=== PATIENT | female | born 1990 | race Caucasian/White ===

== ENCOUNTER → 2019-12-09 10:21 | Outpatient (CLI) | payer OTHER, SELFPAY ==
[2019-12-09 10:14] VITALS: BMI 27.8
[2019-12-09 11:03] LABS: Absolute Lymphocyte Count 1.86 X10^3/uL (0.83-4.51); Absolute Neutrophil Count 5.7 X10^3/uL (2.0-7.7); Basophil# 0.03 X10^3/uL; Basophil% 0.4 % (0-1); Eosinophil# 0.04 X10^3/uL; Eosinophils% 0.5 % (0-5); Hematocrit 40.1 % (37-47); Hemoglobin 13.6 g/dL (12.0-15.0); Lymphocyte # 1.86 X10^3/ul (4.0); Lymphocyte % 22.8 % (19-41); Mean Corp Hgb Conc 33.9 g/dL (32-36); Mean Corpuscular Hgb 31.7 pg (27.0-32.0); Mean Corpuscular Volume 93.5 fL (81-99); Mean Platelet Vol. 9.3 fl (6.2-12.0); Monocyte# 0.53 X10^3/uL; Monocyte% 6.5 % (0-10); NRBC Flagged by Analyzer 0 % (0-5); Neutrophil # 5.68 X10^3/uL (2.7-7.7); Neutrophil % 69.4 % (47-70); Platelet Count 234 K/mm3 (150-450); RBC Distribution Width CV 12.1 % (11.6-14.6); RBC Distribution Width SD 41.7 fl (35.1-43.9); Red Blood Count 4.29 M/mm3 (4.2-5.4); White Blood Count 8.2 K/mm3 (4.4-11.0)
[2019-12-09 11:39] LABS: Amphetamine Urine VISTA NEGATIVE (<1000 ng/mL); Barbiturate Urine VISTA NEGATIVE (< 200 ng/mL); Benzodiazepine Urine VISTA NEGATIVE (< 200 ng/mL); Cocaine Urine VISTA NEGATIVE (< 300 ng/mL); Ecstacy Urine VISTA NEGATIVE (< 500 ng/mL); Methadone Urine VISTA NEGATIVE (< 300 ng/mL); PCP Urine VISTA NEGATIVE (< 25 ng/mL); THC Urine VISTA NEGATIVE (< 50 ng/mL); Vista UDS pH Range 6
[2019-12-09 12:01] LABS: HIV - WCH Non-Reactive (Nonreactive); Hepatitis B Surface Antigen Non-Reactive (Nonreactive); Hepatitis C Antibody Non-Reactive (Nonreactive); Rubella IgG 198.1 IU/mL
[2019-12-11 04:07] LABS: Chlamydia By Nucleic Acid AMP Negative (Negative)
[2019-12-11 05:34] LABS: Gonococcus By Nucleic Acid AMP Negative (Negative)
[2019-12-12 04:30] LABS: Rapid Plasmin Reagin (RPR) NONREACTIVE (NONREACTIVE)
== END ==
PROVIDERS: PCP Family Medicine; Referring Provider Obstetrics & Gynecology; Visit Provider Obstetrics & Gynecology
DX: Z34.00 Encounter for supervision of normal first pregnancy, unspecified trimester (principal)
CPT/HCPCS: 36415; 80307; 85025; 86592; 86703; 86762; 86803; 86850; 86900; 86901; 87086; 87088; 87340; 87491; 87591

== ENCOUNTER → 2020-05-01 07:28 | Outpatient (CLI) | payer OTHER, SELFPAY ==
[2020-04-03 08:43] VITALS: BMI 30.2
[2020-05-01 07:50] LABS: Absolute Lymphocyte Count 1.47 X10^3/uL (0.83-4.51); Absolute Neutrophil Count 5.7 X10^3/uL (2.0-7.7); Basophil# 0.03 X10^3/uL; Basophil% 0.4 % (0-1); Eosinophil# 0.04 X10^3/uL; Eosinophils% 0.5 % (0-5); Hematocrit 36.2 % (37-47); Hemoglobin 12.5 g/dL (12.0-15.0); Lymphocyte # 1.47 X10^3/ul (4.0); Mean Corp Hgb Conc 34.5 g/dL (32-36); Mean Corpuscular Volume 95.5 fL (81-99); Mean Platelet Vol. 9.2 fl (6.2-12.0); Monocyte# 0.53 X10^3/uL; Monocyte% 6.8 % (0-10); NRBC Flagged by Analyzer 0 % (0-5); Neutrophil # 5.66 X10^3/uL (2.7-7.7); Platelet Count 175 K/mm3 (150-450); RBC Distribution Width CV 12.5 % (11.6-14.6); RBC Distribution Width SD 43.1 fl (35.1-43.9); Red Blood Count 3.79 M/mm3 (4.2-5.4); White Blood Count 7.8 K/mm3 (4.4-11.0)
[2020-05-01 08:00] LABS: Glucose Challenge Gest 1H 50g 80 mg/dL (70-140)
== END ==
PROVIDERS: PCP Family Medicine; Referring Provider Obstetrics & Gynecology; Visit Provider Obstetrics & Gynecology
DX: Z34.90 Encounter for supervision of normal pregnancy, unspecified, unspecified trimester (principal); Z13.1 Encounter for screening for diabetes mellitus
CPT/HCPCS: 36415; 82950; 85025

== ENCOUNTER → 2020-06-22 | Outpatient (CLI) | payer OTHER, SELFPAY ==
[2020-06-22 08:34] VITALS: BMI 34.0
== END | disposition home or self-care (01) ==
LOC: LABSPEC 12:24
PROVIDERS: PCP Family Medicine; Referring Provider Obstetrics & Gynecology; Visit Provider Obstetrics & Gynecology
DX: Z34.00 Encounter for supervision of normal first pregnancy, unspecified trimester (principal)
CPT/HCPCS: 87081

== ENCOUNTER 2020-07-09 00:55 | Inpatient (IN) | payer OTHER, SELFPAY ==
[2020-07-03 08:15] VITALS: BMI 33.5
[2020-07-09] VITALS (76 sets, daily range): BP systolic 102–142; BP diastolic 55–95; PULSE 67–213; RESP 16; TEMP 36.1–37.5; O2SAT 83–99; BMI 32.9
[2020-07-09 00:54] LABS: ROM Internal Control Test YES-OK TO RESULT pt. (Internal QC); ROM Patient Test POSITIVE (Negative)
[2020-07-09 01:29] LABS: Absolute Lymphocyte Count 1.61 X10^3/uL (0.83-4.51); Absolute Neutrophil Count 5.1 X10^3/uL (2.0-7.7); Basophil# 0.01 X10^3/uL; Basophil% 0.1 % (0-1); Eosinophil# 0.03 X10^3/uL; Eosinophils% 0.4 % (0-5); Hematocrit 38.7 % (37-47); Hemoglobin 13.3 g/dL (12.0-15.0); Lymphocyte # 1.61 X10^3/ul (0.83-4.51); Lymphocyte % 22.4 % (19-41); Mean Corp Hgb Conc 34.4 g/dL (32-36); Mean Corpuscular Hgb 32.9 pg (27.0-32.0); Mean Corpuscular Volume 95.8 fL (81-99); Mean Platelet Vol. 9.9 fl (6.2-12.0); Monocyte# 0.45 X10^3/uL; Monocyte% 6.3 % (0-10); NRBC Flagged by Analyzer 0 % (0-5); Neutrophil # 5.06 X10^3/uL (2.7-7.7); Neutrophil % 70.2 % (47-70); Platelet Count 192 K/mm3 (150-450); RBC Distribution Width CV 12.2 % (11.6-14.6); RBC Distribution Width SD 42.5 fl (35.1-43.9); Red Blood Count 4.04 M/mm3 (4.2-5.4); White Blood Count 7.2 K/mm3 (4.4-11.0)
[2020-07-09] MEDS: Acetaminophen 500 MG Tablet PO (05:01)
--- NOTE | 2020-07-09 08:30 | PCM.HPOB.BLA ---
- Problem List (1) Active labor Status: Acute (2) 38 weeks gestation of Status: Acute Comment: COVID ordered on 07/01/20 ([facility] 07/03 2:20pm) (3) Status: Acute Qualifiers: Comment: declined genetic, carrier and NTD. NL anatomy (4) Supervision of normal first , antepartum Status: Acute Comment: PRR FLORINDA 07/15/20 girl (secret) Spouse: Jensen History and Physical Date of Admission: 07/09/20 Intake Vital Signs 07/03/20 BP 128/78 H 07/03/20 Height 5 ft 2 in 07/03/20 Weight: 183 lb 07/03/20 BMI 33.5 07/03/20 BP 140/90 H 05/01/20 BMI 31.3 Intake Visit Reasons: 38WK OB Chief Complaint: est ob Window Installer Required: No Is patient in pain?: No Allergies No Known Allergies Allergy (Verified 07/03/20 08:15) Medications multivitamin no.47-iron fum 27 mg-folate no.1 1 mg-dha 300 mg capsule cap PO 12/09/19 [History Confirmed 07/03/20] amoxicillin 500 mg capsule 500 mg PO Q8H 07/03/20 [History Confirmed 07/03/20] Last Menstral Period: 10/09/19 Zika: Zika virus screening: Negative : No PFSH PFSH Family History Father Colon cancer Diabetes Grandmother Heart disease Social History (Updated 07/03/20 @ 08:[address] Viktoria Hale MD) adopted: No household members: spouse current occupational status: employed current occupation: [employer] pets and animals: Yes sexually active: Yes Smoking Status: Never smoker second hand exposure: No alcohol intake: current details: not while substance use type: does not use seatbelt use: always do you feel safe at home: Yes additional social history: Jensen- student/construction Pregancy History 1 Elective abortions Hx Para Spontaneous abortions Hx # Term Pregnancies Ectopic pregnancies Hx # Pregnancies Multiple births # of living children HPI 38WK OB: Details: KAHLIL BISHOP is a 29 year old at 39 weeks who presents for active labor. OB Visit FLORINDA Calculator Estimated Delivery Date Method Current WG Current Estimate 07/15/20 LMP (Certain) 38w 2d Other Estimates 07/11/20 Ultrasound #1 38w 6d Expected Delivery Route/Plan by 41 weeks Labor Preferences- CB/BF classes: done labor support person: Jensen labor intervention preferences: desires hydrotherapy in labor, limited exams, open to other standard interventions pain management options preferred: desires minimal intervention cut cord/dad catch: cord, maybe delivery - somewhat queasy : yes PP control planned: discussed possible routes of delivery and associated risks: discussed possible delivery modalities and possible indications for each including R/B/A of , VAVD, FAVD, and CS. questions answered. special requests: [] Specific Issue/Plans flu vaccine: declined tdap vaccine: declines rhogam: na LARC form signed: 05/01 movement and labor precautions reviewed. Problem list reviewed and updated with the most current plan of care details and appropriate orders placed. Relevant counseling for the gestational age provided. Continue routine care and follow up unless otherwise noted in visit notes/problem list details Initial Weight: 155 lb Date EGA Weight BP Urine Prot Glucose FHR FuHt Pres Dilation Effaced St Visit Note 01/10/20 13w 2d 154 lb 4 oz (-12 oz) 108/70 Negative Negative 150 Sm- no vb cramping feeling good. 02/03/20 16w 5d 157 lb (+2 lb) Negative Negative 150 SM- no vb cramping 03/02/20 20w 5d 160 lb (+5 lb) 104/62 Negative Negative 145 SM- no vb some cramping and round ligament pain 04/03/20 25w 2d 165 lb (+10 lb) 104/68 Negative Negative 145 SM- no vb lof good fm no regular ctx nl anatomy 05/01/20 29w 2d 171 lb 2 oz (+16 lb 2 oz) 120/78 Negative Negative 150 29 GP - no LOF, VB, DFM, ctx. 28w labs normal. Declines TDAP. LARC form signed. 05/15/20 31w 2d 173 lb (+18 lb) 112/80 Negative Negative 150 31 SM- no vb lof good fm no reuglar ctx 05/29/20 33w 2d 175 lb 6 oz (+20 lb 6 oz) 120/80 Negative Negative 140 33 GP - no LOF, VB, DFM, ctx. Discussed labor preferences and routes of delivery. 06/12/20 35w 2d 182 lb (+27 lb) 122/78 Negative Negative 140 35 SM- no vb lof good fm no reuglar ctx 06/22/20 36w 5d 186 lb (+31 lb) 110/84 Negative Negative 145 36 GP - no LOF, VB, DFM, ctx. Denies complaints. GBS done today. 07/03/20 38w 2d 183 lb (+28 lb) 140/90 128/78 145 37 SM- n ovb lof good fm no regular ctx ACOG First Trimester First Trimester: Desire for , Alcohol, Tobacco Cessation, Illicit/Recreational Drug/Substance Use, Intimate Partner Violence, Barriers to care, Unstable Housing, Communication Barriers, Environmental/Work Hazards, Anticipated Course of Care, Toxoplasmosis Precations, Use of Any medications, Sexual activity, Exercise, Dental Care, Sauna/Hot tub use, Seat Belt use, Childbirth classes/Hospital facilities, , Travel, Indications for US and Screening for Aneuploidy Diagnostics Diagnostics Diagnostics Blood Type A POSITIVE 12/09/19 Antibody Screen NEGATIVE 12/09/19 Glucose 1 Hr 50 gm 80 mg/dL (70-140) 05/01/20 HIV 1&2 Antibody Non-Reactive (Nonreactive) 12/09/19 Rubella IgG Antibody 198.1 IU/mL 12/09/19 Hgb 12.5 g/dL (12.0-15.0) 05/01/20 Hct 36.2 % (37-47) L 05/01/20 RPR NONREACTIVE (NONREACTIVE) 12/09/19 Chlamydia DNA (VALERIANO) Negative (Negative) 12/09/19 N.gonorrhoeae DNA (VALERIANO) Negative (Negative) 12/09/19 Details: HIV: Urine Culture: Sequential Screen: NIPT Screen: ROS Const Reports system reviewed and no additional complaints, except as documented Card Reports system reviewed and no additional complaints, except as documented Resp Reports system reviewed and no additional complaints, except as documented GI Reports system reviewed and no additional complaints, except as documented, Reports nausea Reports system reviewed and no additional complaints, except as documented Musc Reports system reviewed and no additional complaints, except as documented all other systems reviewed and negative Exam Const General: cooperative, healthy appearing, comfortable HENMT Head: normal to inspection Nose: external nose normal Face and sinus: normal facial exam Neck Neck: normal visual inspection, full ROM, no lymphadenopathy Thyroid: thyroid normal Chest Chest palpation & inspection: normal inspection of the chest Resp Effort & Inspection: normal respiratory effort GI Inspection: normal to inspection Palpation: soft, other (gravid uterus) Other: infant vertex and appropriate size for gestational age Other: Cervical Exam: /-3 Extrem General: pedal edema Assessment & Plan Problems 1. Z34.90 declined genetic, carrier and NTD. NL anatomy 2. Supervision of normal first , antepartum Z34.00 PRR FLORINDA 07/15/20 girl (secret) Spouse: Jensen 3. 38 weeks gestation of Z3A.38 COVID ordered on 07/01/20 ([facility] 07/03 2:20pm) Patient presents IAL, plan expectant management for , pitocin if needed. Pain management: desires minimal intervention. GBS negative. Management of any complications: none I have reviewed the [facility] and made any clinically relevant updates. UPDATE- I have seen the patient and performed any clinically relevant updates to the history and physical exam. Estephania Horne MD
[2020-07-09] MEDS: Lactated Ringers 1,000 ML 200 ML IV (10:25)
[2020-07-09] MEDS: Lactated Ringers 500 ML 999 ML IV (12:23)
[2020-07-09] MEDS: fentaNYL-bupivacaine (epidural) 100 ML BAG EPIDURAL (13:00)
[2020-07-09] MEDS: Oxytocin 30 units/NS 500 ml 30 UNITS/500 ML IV.SOLN 334 UNITS IV (17:31)
[2020-07-09] MEDS: Methylergonovine 0.2 MG/ML Ampul IM (17:36)
--- NOTE | 2020-07-09 17:47 | OP.PCM_ITS ---
Problem List (1) Active labor Status: Acute (2) 38 weeks gestation of Status: Acute Comment: COVID ordered on 07/01/20 ([facility] 07/03 2:20pm) (3) Status: Acute Qualifiers: Comment: declined genetic, carrier and NTD. NL anatomy (4) Supervision of normal first , antepartum Status: Acute Comment: PRR FLORINDA 07/15/20 girl (secret) Spouse: Jensen Vaginal Delivery Maternal Presentation: Active Labor 29yo at 39 weeks gestation admitted in active labor. Patient made cervical change to complete dilation without augmentation Amniotic Membrane Rupture Type: Spontaneous at home Amniotic Fluid Description: Clear Final FLORINDA: 07/15/20 Gestational age: 39 Weeks and 1 Days Date of Procedure: 07/09/20 Pre-Operative Diagnosis: Term , active labor Post-Operative Diagnosis: Same Surgery/ Procedure Performed: Spontaneous Vaginal Delivery Type of Anesthesia: Epidural Description of Procedure: Patient began pushing and delivered the head in the MAIK presentation. The head was delivered atraumatically and a loose nuchal cord x2 was noted and easily reduced. The anterior and posterior shoulders delivered without complication followed by the rest of the infant and the infant was placed on the maternal abdomen. Delayed cord clamping was employed for approximately 60 seconds. Cord was clamped and cut and gentle traction was applied to the cord and the placenta delivered spontaneously immediately following it was noted to be intact with three-vessel cord. The perineum and vagina were inspected and a midline first- degree perineal laceration was noted and repaired in the standard fashion using 3-0 Vicryl repeat suture. EBL was 250 cc. Patient and infant tolerated delivery well.
--- NOTE | 2020-07-09 21:29 | DCINST_ITS ---
Discharge Diet: No Restrictions Discharge Activity: Return to Normal Activity, May not drive while taking narcotic pain medications., May Shower May resume sexual activity in: 4-6 weeks Additional Activity Instructions:: Nothing in the vagina for 4-6 weeks. You may return to work/school in 6 weeks. Call your doctor if your incision/area has: Continuous Slow Oozing, Sudden Increased Bleeding, Increased Pain/ Swelling, Increased Redness, Foul Smelling Discharge Additional Instructions: If you experience any of the following, contact your healthcare provider. * Bleeding that soaks a pad every hour for 2 hours * Fever 100.4 or higher * Unrelieved incision or abdominal pain * Swelling, redness, discharge or bleeding from your incision or episiotomy site * Your incision begins to separate * Problems urinating (including inability to urinate or burning while urinating). * Visual changes * Severe headache * Flu-like symptoms * Pain or redness in one of both of your breasts * Pain, warmth, tenderness or swelling in your legs, especially the calf area * Frequent nausea and vomiting * Symptoms of depression or anxiety If you experience any of the following, call 911 or go to the nearest Emergency Room. * Chest pain * Problems breathing * Seizure activity * Partial or complete paralysis of a body part, slurred speech, weakness or drooping of the face, or a sudden inability to walk or hold your balance Allergies/Adverse Reactions: Allergies No Known Allergies Allergy (Verified 07/09/20 00:35) Medications to take at Discharge multivitamin no.47-iron fum 27 mg-folate no.1 1 mg-dha 300 mg capsule cap PO 12/09/19 amoxicillin 500 mg capsule 500 mg PO Q8H 07/03/20 When: Call to make an appointment with your doctor in 6 weeks. If you had elevated Blood Pressure or 4th degree laceration you will need to be seen in 2 weeks. Primary Care Physician: Manjinder Cuellar MD [Primary Care Provider] - Test Results: Test results from this visit will be discussed in further detail at your follow- up appointment, if applicable.
[2020-07-09] MEDS: AMOXICILLIN 500 MG CAPSULE PO (22:24)
[2020-07-10] VITALS (9 sets, daily range): BP systolic 111–131; BP diastolic 57–81; PULSE 82–92; RESP 16–18; TEMP 36.3–37.1
[2020-07-10] MEDS: AMOXICILLIN 500 MG CAPSULE PO ×3 (05:35→21:19)
[2020-07-10] MEDS: Naproxen 250 MG Tablet 500 MG PO (05:38)
--- NOTE | 2020-07-10 09:52 | PN.OBGYN_ITS ---
Patient Problems: Active and Suspected Problems (Last Reviewed 07/03/20 @ 08:20 by Nikole Duran) Active labor (Acute) 38 weeks gestation of (Acute) COVID ordered on 07/01/20 ([facility] 07/03 2:20pm) Supervision of normal first , antepartum (Acute) PRR FLORINDA 07/15/20 girl (secret) Spouse: Jensen (Acute) declined genetic, carrier and NTD. NL anatomy Subjective: Patient doing well without complaints. Tolerating PO. Ambulating and voiding without difficulty. Breast feeding well. Denies chest pain, shortness of breath, calf pain/swelling, fevers, chills, lightheadedness. - Physical Exam Vitals/I&O's: Vital Signs Temp Pulse Resp BP Pulse Ox 98.4 F 90 16 119/71 96 07/10/20 07:54 07/10/20 07:53 07/10/20 07:53 07/10/20 07:53 07/09/20 23:58 Oxygen Delivery Method Room Air Weight: 180 lb Body Mass Index (BMI) 32.9 Intake and Output for Last 24 Hours 07/08/20 07/09/20 07/10/20 23:59 23:59 23:59 Intake Total 2700.00 / 2700.00 Output Total 1999 / 1999 Balance 700.00 / 700.00 General: Alert, Oriented x3, Cooperative, No apparent distress, Well developed, Well nourished HEENT: Atraumatic, PERRLA, EOMI, Normocephalic Neck: Supple, No JVD Lungs: Normal air movement Cardiovascular: Regular rate Abdomen: Soft, Non Tender, Non-Distended, - - fundus firm Extremities: No edema, No Calf Tenderness Neurological: Cranial nerves II-XII grossly intact, Neuro grossly intact Psych/Mental Status: Normal Affect, Appropriate Microbiology Past 72 Hours 07/09/20 01:15 Mucosa - Nose SARS-CoV-2 Antigen (Rapid) - Final Current Medications Acetaminophen (Acetaminophen 500 Mg Tablet) 1,000 mg PO Q8H PRN PRN PRN Reason: Pain Score 1-3 Amoxicillin (Amoxicillin 500 Mg Capsule) 500 mg PO Q8 [facility] Last Admin: 07/10/20 05:35 Dose: 500 mg Documented by: Bisacodyl (Bisacodyl 10 Mg Suppository) 10 mg RC UD PRN PRN Reason: If no BM Dibucaine (Dibucaine 30 Gm Tube) 1 applic TOPICAL TID PRN PRN; Protocol PRN Reason: Discomfort Hydrocortisone (Hydrocortisone 2.5% Crm) 1 applic TOPICAL TID PRN PRN; Protocol PRN Reason: Discomfort Methylergonovine Maleate (Methylergonovine 0.2 Mg/Ml Ampul) 0.2 mg IM X1 PRN PRN Reason: Excess bleeding/uterine atony Last Admin: 07/09/20 17:36 Dose: 0.2 mg Documented by: Naproxen (Naproxen 250 Mg Tablet) 500 mg PO Q8H PRN PRN PRN Reason: Pain Score 1-3 Last Admin: 07/10/20 05:38 Dose: 500 mg Documented by: Ondansetron HCl (Ondansetron 4 Mg/2 Ml Vial) 4 mg IV Q4H PRN PRN PRN Reason: Nausea Oxycodone HCl (Oxycodone 5 Mg Tablet) 5 - 10 mg PO Q4H PRN PRN PRN Reason: Pain Score 4-10 Senna/Docusate Sodium (Senna/Docusate Sodium 1 Tablet) 1 - 2 tablet PO DAILY PRN PRN PRN Reason: Constipation Simethicone (Simethicone 80 Mg Tablet) 80 mg PO PCHS PRN PRN Reason: Indigestion/Stomach pain Sodium Chloride (0.9% Saline Lock 10 Ml Syringe) 5 - 15 ml IV UD PRN PRN Reason: SALINE FLUSH Medical Necessity - Tobacco Use Smoking Status: Former smoker Assessment/Plan All Active Problems (Last Reviewed 07/03/20 @ 08:20 by Nikole Duran) Active labor (Acute) 38 weeks gestation of (Acute) Supervision of normal first , antepartum (Acute) (Acute) negative GBS (Resolved) s/p PPD # 1 1. routine post delivery care 2. breast feeding- support given 3. rh positive 4. rubella immune
[2020-07-10] MEDS: Acetaminophen 500 MG Tablet 1000 MG PO (17:59)
[2020-07-10] MEDS: Senna/Docusate Sodium 1 Tablet PO (21:19)
[2020-07-11 01:46] VITALS: BP 127/75; PULSE 80; TEMP 36
[2020-07-11 01:47] VITALS: BP 127/75; PULSE 80; RESP 16; TEMP 36.6
[2020-07-11] MEDS: AMOXICILLIN 500 MG CAPSULE PO (05:53)
[2020-07-11 08:00] VITALS: BP 113/72; PULSE 85; RESP 18; TEMP 36.7; O2SAT 96
[2020-07-11 08:01] VITALS: BP 113/72; PULSE 85
--- NOTE | 2020-07-11 08:49 | PCM.PN.OB ---
Patient Problems: Active and Suspected Problems (Last Reviewed 07/03/20 @ 08:20 by Nikole Duran) Active labor (Acute) 38 weeks gestation of (Acute) COVID ordered on 07/01/20 ([facility] 07/03 2:20pm) Supervision of normal first , antepartum (Acute) PRR FLORINDA 07/15/20 girl (secret) Spouse: Jensen (Acute) declined genetic, carrier and NTD. NL anatomy Subjective: Patient doing well without complaints. Tolerating PO. Ambulating and voiding without difficulty. Breast feeding well. Denies chest pain, shortness of breath, calf pain/swelling, fevers, chills, lightheadedness. - Physical Exam Vitals/I&O's: Vital Signs Temp Pulse Resp BP Pulse Ox 98.1 F 85 18 113/72 96 07/11/20 08:00 07/11/20 08:01 07/11/20 08:00 07/11/20 08:01 07/11/20 08:00 Oxygen Delivery Method Room Air Weight: 180 lb Body Mass Index (BMI) 32.9 Intake and Output for Last 24 Hours 07/09/20 07/10/20 07/11/20 23:59 23:59 23:59 Intake Total 2700.00 / 2700.00 Output Total 1999 / 1999 Balance 700.00 / 700.00 General: Alert, Oriented x3, Cooperative, No apparent distress, Well developed, Well nourished HEENT: Atraumatic, PERRLA, EOMI, Normocephalic Neck: Supple, No JVD Lungs: Normal air movement Cardiovascular: Regular rate Abdomen: Soft, Non Tender, Non-Distended, - - fundus firm Extremities: No edema, No Calf Tenderness Neurological: Cranial nerves II-XII grossly intact, Neuro grossly intact Psych/Mental Status: Normal Affect, Appropriate Microbiology Past 72 Hours 07/09/20 01:15 Mucosa - Nose SARS-CoV-2 Antigen (Rapid) - Final Current Medications Acetaminophen (Acetaminophen 500 Mg Tablet) 1,000 mg PO Q8H PRN PRN PRN Reason: Pain Score 1-3 Last Admin: 07/10/20 17:59 Dose: 1,000 mg Documented by: Amoxicillin (Amoxicillin 500 Mg Capsule) 500 mg PO Q8 [facility] Last Admin: 07/11/20 05:53 Dose: 500 mg Documented by: Bisacodyl (Bisacodyl 10 Mg Suppository) 10 mg RC UD PRN PRN Reason: If no BM Dibucaine (Dibucaine 30 Gm Tube) 1 applic TOPICAL TID PRN PRN; Protocol PRN Reason: Discomfort Hydrocortisone (Hydrocortisone 2.5% Crm) 1 applic TOPICAL TID PRN PRN; Protocol PRN Reason: Discomfort Methylergonovine Maleate (Methylergonovine 0.2 Mg/Ml Ampul) 0.2 mg IM X1 PRN PRN Reason: Excess bleeding/uterine atony Last Admin: 07/09/20 17:36 Dose: 0.2 mg Documented by: Naproxen (Naproxen 250 Mg Tablet) 500 mg PO Q8H PRN PRN PRN Reason: Pain Score 1-3 Last Admin: 07/10/20 05:38 Dose: 500 mg Documented by: Ondansetron HCl (Ondansetron 4 Mg/2 Ml Vial) 4 mg IV Q4H PRN PRN PRN Reason: Nausea Oxycodone HCl (Oxycodone 5 Mg Tablet) 5 - 10 mg PO Q4H PRN PRN PRN Reason: Pain Score 4-10 Senna/Docusate Sodium (Senna/Docusate Sodium 1 Tablet) 1 - 2 tablet PO DAILY PRN PRN PRN Reason: Constipation Last Admin: 07/10/20 21:19 Dose: 2 tablet Documented by: Simethicone (Simethicone 80 Mg Tablet) 80 mg PO PCHS PRN PRN Reason: Indigestion/Stomach pain Sodium Chloride (0.9% Saline Lock 10 Ml Syringe) 5 - 15 ml IV UD PRN PRN Reason: SALINE FLUSH Medical Necessity - Tobacco Use Smoking Status: Former smoker Assessment/Plan All Active Problems (Last Reviewed 07/03/20 @ 08:20 by Nikole Duran) Active labor (Acute) 38 weeks gestation of (Acute) Supervision of normal first , antepartum (Acute) (Acute) negative GBS (Resolved) s/p PPD # 2 1. routine post delivery care 2. breast feeding- support given 3. rh positive 4. rubella immune
== END 2020-07-11 09:20 | disposition home or self-care (01) | DRG 807 ==
LOC: WPOUT 01:01 → WP 01:01
PROVIDERS: Admitting Provider Obstetrics & Gynecology; PCP Family Medicine; Visit Provider Obstetrics & Gynecology
DX: O42.92 Full-term premature rupture of membranes, unspecified as to length of time between rupture and onset of labor (principal); Z37.0 Single live birth; O69.81X0 Labor and delivery complicated by cord around neck, without compression, not applicable or unspecified; O70.0 First degree perineal laceration during delivery; Z3A.39 39 weeks gestation of pregnancy; Z28.21 Immunization not carried out because of patient refusal; Z87.891 Personal history of nicotine dependence
CPT/HCPCS: 59025; 59050; 84112; 85025; 86850; 86900; 86901; 87426; 99218; J7120; G0378

== ENCOUNTER → 2022-10-25 | Outpatient (CLI) | payer SELFPAY ==
--- NOTE | 2022-10-25 09:43 | US_ITS ---
STUDY: FIRST TRIMESTER OBSTETRICAL ULTRASOUND REASON FOR EXAM: Female, 32 years old . Dating. LMP: August 17, 2022. TECHNIQUE: Transvaginal TECHNICAL QUALITY: Adequate. PRIOR ULTRASOUND: None. FINDINGS: There is visualization of a single gestational sac in a normal intrauterine position. The mean sac diameter (MSD) measures 4.6 cm, indicating an estimated gestational age (EGA) of 10 weeks, 1 days. The gestational sac shape is within normal limits. There is a visualized yolk sac. The yolk sac measures 5 mm. The placenta is non-visualized. There is visualization of a live embryo. The crown-rump length (CRL) measures 3.4 cm, indicating an estimated gestational age (EGA) of 10 weeks, 0 days. There is demonstrated cardiac activity with a heart rate of 172 bpm. The estimated gestation age (EGA) by LMP is 9 weeks, 6 days. The estimated date of delivery (FLORINDA) by LMP is May 24, 2023. The estimated gestation age (EGA) by US is 10 weeks, 1 days. The estimated date of delivery (FLORINDA) by US is May 22, 2023. The uterus measures 11.2 cm x 8.8 cm x 7.2 cm. There is no demonstrated uterine fibroid. The cervix is closed. The right ovary measures 2.5 cm x 2.2 cm x 2.5 cm. There is no right ovarian cyst. There is no visualized right adnexal mass or complex lesion. The left ovary measures 2.4 cm x 1.97 x 1.6 cm. There is no left ovarian cyst. There is no visualized left adnexal mass or complex lesion. There is no fluid in the cul de sac. US/Transvaginal w/Preg US IMPRESSION: Single live intrauterine gestation with a mean gestational age of 10 weeks and 1 day. Electronically Signed: Jeffrey Laurent MD at 15:19 EDT ,
[2022-10-28 12:09] LABS: Chlamydia By Nucleic Acid AMP Negative (Negative); Gonococcus By Nucleic Acid AMP Negative (Negative)
[2022-10-31 13:07] LABS: HPV APTIMA, High Risk Negative (Negative)
== END | disposition home or self-care (01) ==
PROVIDERS: PCP Family Medicine; Referring Provider Obstetrics & Gynecology; Visit Provider Obstetrics & Gynecology
DX: Z34.00 Encounter for supervision of normal first pregnancy, unspecified trimester (principal)
CPT/HCPCS: 76817; 87077; 87086; 87088; 87186; 87491; 87591; 87624; 88175; G0145

== ENCOUNTER → 2022-11-23 | Outpatient (CLI) | payer SELFPAY ==
[2022-11-23 09:18] LABS: Absolute Lymphocyte Count 1.77 X10^3/uL (0.83-4.51); Absolute Neutrophil Count 5.4 X10^3/uL (2.0-7.7); Basophil# 0.02 X10^3/uL; Basophil% 0.3 % (0-1); Eosinophil# 0.03 X10^3/uL; Eosinophils% 0.4 % (0-5); Hematocrit 40.3 % (37-47); Hemoglobin 13.8 g/dL (12.0-15.0); Lymphocyte # 1.77 X10^3/ul (0.83-4.51); Lymphocyte % 23.3 % (19-41); Mean Corp Hgb Conc 34.2 g/dL (32-36); Mean Corpuscular Hgb 32.1 pg (27.0-32.0); Mean Corpuscular Volume 93.7 fL (81-99); Mean Platelet Vol. 9.1 fl (6.2-12.0); Monocyte% 5.3 % (0-10); NRBC Flagged by Analyzer 0 % (0-5); Neutrophil # 5.37 X10^3/uL (2.7-7.7); Neutrophil % 70.4 % (47-70); Platelet Count 193 K/mm3 (150-450); RBC Distribution Width CV 12.4 % (11.6-14.6); RBC Distribution Width SD 42.9 fl (35.1-43.9); White Blood Count 7.6 K/mm3 (4.4-11.0)
[2022-11-23 09:34] LABS: Glucose Challenge Gest 1H 50g 99 mg/dL (70-140)
[2022-11-23 10:17] LABS: HIV - WCH Non-Reactive (Nonreactive); Hepatitis B Surface Antigen Non-Reactive (Nonreactive); Hepatitis C Antibody Non-Reactive (Nonreactive); Rubella IgG Reactive (Nonreactive); Syphilis Antibodies Non-reactive
== END | disposition home or self-care (01) ==
PROVIDERS: PCP Family Medicine; Referring Provider Obstetrics & Gynecology; Visit Provider Obstetrics & Gynecology
DX: Z34.00 Encounter for supervision of normal first pregnancy, unspecified trimester (principal)
CPT/HCPCS: 36415; 82950; 85025; 86703; 86762; 86780; 86803; 86850; 86900; 86901; 87340

== ENCOUNTER → 2023-01-09 | Outpatient (CLI) | payer SELFPAY ==
--- NOTE | 2023-01-09 13:21 | US_ITS ---
STUDY: SECOND AND THIRD TRIMESTER OBSTETRICAL ULTRASOUND REASON FOR EXAM: Female, 32 years old anatomy scan LMP: August 17, 2022. TECHNIQUE: Transabdominal and Transvaginal TECHNICAL QUALITY: Adequate. PRIOR ULTRASOUND: Comparison is made with prior study dated October 25, 2022. FINDINGS: There is a single intrauterine fetus. The fetus is in a cephalic presentation. There is demonstrated cardiac activity with a heart rate of 142 bpm. There is a normal amniotic fluid volume. The largest amniotic fluid pocket measures 3.3 cm x 3.5 cm. The amniotic fluid index (KINDRA) is normal. The placenta is posterior in location and is not low lying. There are Grade 0 placental changes. The cervix measures 5.3 cm in length. The adnexal regions are not visualized. BIOMETRY: BPD: 4.99 cm: 21 weeks, 1 days HC: 19.02 cm: 21 weeks, 2 days AC: 16.43 cm: 21 weeks, 3 days FL: 3.36 cm: 20 weeks, 4 days CI: 76.2% FL/BPD: 67.3% FL/HC: FL/AC: 20.5% HC/AC: 1.16 age by current US: 21 weeks, 0 days. FLORINDA by current US: May 22, 2023. Estimated weight: 400 grams, +/- 60 grams, 65.4 %. age by prior US: 21 weeks, 0 days. FLORINDA by prior US: May 22, 2023. Age by LMP: 20 weeks, 5 days. FLORINDA by LMP: May 24, 2023. ANATOMY: Gender: Male Cranium: Normal lateral ventricles. Normal choroid plexus. Normal cerebellum. Normal cisterna magna. Normal face, nose and lips. Chest: Normal 4-chamber heart. Abdomen/Pelvis: Normal diaphragm. Normal stomach. Normal abdominal wall. Normal cord insertion. Normal 3 vessel cord. The insertion of the umbilical cord is at 2.5 cm from the placental edge. Normal kidneys. Normal bladder. Spine: Normal cervical spine. Normal thoracic spine. Normal lumbar spine. Normal sacrum. Extremities: Normal bilateral upper extremities. Normal bilateral lower extremities. IMPRESSION: Single live intrauterine gestation with a mean gestational age of 21 weeks. Electronically Signed: Jeffrey Laurent MD at 9:46 EDT , STUDY: FIRST TRIMESTER OBSTETRICAL ULTRASOUND REASON FOR EXAM: Female, 32 years old. Cervical length. LMP: August 17, 2022 TECHNIQUE: Transvaginal TECHNICAL QUALITY: Adequate. PRIOR ULTRASOUND: None. FINDINGS: Cervical length measures 5.3 cm. US/OB Anatomy w/ Transvaginal IMPRESSION: Cervical length measures 5.3 cm. Electronically Signed: Jeffrey Laurent MD at 9:47 EDT ,
== END | disposition home or self-care (01) ==
PROVIDERS: PCP Family Medicine; Visit Provider Registered Nurse
DX: Z34.00 Encounter for supervision of normal first pregnancy, unspecified trimester (principal)
CPT/HCPCS: 76805; 76817

== ENCOUNTER → 2023-02-20 | Outpatient (CLI) | payer SELFPAY ==
[2023-02-20 08:45] LABS: Absolute Lymphocyte Count 1.61 X10^3/uL (0.83-4.51); Absolute Neutrophil Count 4.9 X10^3/uL (2.0-7.7); Basophil# 0.02 X10^3/uL; Basophil% 0.3 % (0-1); Eosinophil# 0.06 X10^3/uL; Eosinophils% 0.9 % (0-5); Hematocrit 37.5 % (37-47); Hemoglobin 12.3 g/dL (12.0-15.0); Lymphocyte # 1.61 X10^3/ul (0.83-4.51); Lymphocyte % 23.2 % (19-41); Mean Corp Hgb Conc 32.8 g/dL (32-36); Mean Corpuscular Hgb 31.8 pg (27.0-32.0); Mean Corpuscular Volume 96.9 fL (81-99); Mean Platelet Vol. 8.9 fl (6.2-12.0); Monocyte# 0.32 X10^3/uL; Monocyte% 4.6 % (0-10); NRBC Flagged by Analyzer 0 % (0-5); Neutrophil % 70.4 % (47-70); Platelet Count 207 K/mm3 (150-450); RBC Distribution Width CV 13.2 % (11.6-14.6); RBC Distribution Width SD 46.8 fl (35.1-43.9); Red Blood Count 3.87 M/mm3 (4.2-5.4)
[2023-02-20 08:55] LABS: Glucose Challenge Gest 1H 50g 97 mg/dL (70-140)
[2023-02-20 09:37] LABS: HIV - WCH Non-Reactive (Nonreactive); Syphilis Antibodies Non-reactive
== END | disposition home or self-care (01) ==
PROVIDERS: PCP Family Medicine; Referring Provider Registered Nurse; Visit Provider Registered Nurse
DX: Z34.90 Encounter for supervision of normal pregnancy, unspecified, unspecified trimester (principal)
CPT/HCPCS: 36415; 82950; 85025; 86703; 86780

== ENCOUNTER → 2023-05-01 | Outpatient (CLI) | payer SELFPAY ==
--- OUTSIDE RECORDS SUMMARY | 2023-05-01 20:37 | XMS RPT_ITS | CCD ---
Author Name Unknown Address [id number] [place] [address] Organization [facility] Care Team Providers Care Box Repairer Name Role Phone Sae Escoto Marija Unavailable Unavailable Problems Active Problems Problem Classification Problem Date Documented Da te Episodic/Chronic Unclassified (1 source) Unknown / UNK(Unknown) Onset: 06-10-2017 Past or Other Problems Problem Classification Problem Date Documented Da te Episodic/Chronic Unclassified (1 source) CASTLE,RUNNY NOSE,EAR PAIN,BODY ACHE Onset: 06-10-2017 Results Test Name Value Interpretation Reference Range Facil ity Encounters Encounter Date Encounter Type Care Provider Facility Start: 06-10-2017 Ambulatory Sae Escoto Facility: [facility] Payers Date Payer Category Payer Unknown [id number] Summary Purpose Family History No Family History Records FoundNo Family History Records Found Advance Directives No Advanced Directives Records FoundNo Advanced Directives Records Found Additional Source Comments INFORMATION SOURCE (unrecogn ized section and content) DATE CREATED AUTHOR AUTHOR'S ARSLAN HURT 08/26/2019 [facility] (PR) FOR RECORDS PERTAINING TO PATIENTS WHO ARE OR HAVE BEEN ENROLLED IN A CHEMICAL DEPENDENCY/SUBSTANCEABUSE PROGRAM, SOME INFORMATION MAY BE OMITTED. This clinical summary was aggregated from multiple sources. Caution should be exercised in using it in the provision of clinical care. This summary normalizes information from multiple sources, and as a consequence, information in this document may materially change the coding, format and clinical context of patient data. In addition, data may be omitted in some cases. CLINICAL DECISIONS SHOULD BE BASED ON THE PRIMARY CLINICAL RECORDS. [facility] [employer] [facility]. provides no warranty or guarantee of the accuracy or completeness of information in this document.
== END | disposition home or self-care (01) ==
PROVIDERS: PCP Family Medicine; Visit Provider Advanced Practice Midwife
DX: R82.71 Bacteriuria (principal)
CPT/HCPCS: 87081

== ENCOUNTER 2023-05-27 09:38 | Inpatient (IN) | payer SELFPAY ==
[2023-05-27] VITALS (27 sets, daily range): BP systolic 105–181; BP diastolic 56–89; PULSE 80–134; RESP 16; TEMP 36.3–37.2; O2SAT 95–98; BMI 34.7
--- OUTSIDE RECORDS SUMMARY | 2023-05-27 09:10 | XMS RPT_ITS | CCD ---
Author Name Unknown Address [address] [place] [address] Organization [facility] Care Team Providers Care Opener Name Role Phone Sae Escoto Marija Unavailable [...] Facility Start: 06-10-2017 Ambulatory Sae Escoto Facility: [facility] Payers Date Payer Category Payer Unknown [id number] Summary Purpose Family History No Family History Records FoundNo Family History Records Found Advance Directives No Advanced Directives Records FoundNo Advanced Directives Records Found Additional Source Comments INFORMATION SOURCE (unrecogn ized section and content) DATE CREATED AUTHOR AUTHOR'S ARSLAN HURT 08/26/2019 [facility] ([place]) FOR RECORDS PERTAINING TO PATIENTS WHO ARE [...] BE BASED ON THE PRIMARY CLINICAL RECORDS. [facility] [employer] [facility]. provides no warranty or guarantee of the accuracy or completeness of information in this document.
--- OUTSIDE RECORDS SUMMARY | 2023-05-27 09:40 | XMS RPT_ITS | CCD ---
Author Name Unknown Address [address] [place] [address] Organization [facility] Care Team Providers Care Charging Manipulator Name Role Phone Sae Escoto Marija Unavailable [...] Facility Start: 06-10-2017 Ambulatory Sae Escoto Facility: [facility] Payers Date Payer Category Payer Unknown [id number] Summary Purpose Family History No Family History Records FoundNo Family History Records Found Advance Directives No Advanced Directives Records FoundNo Advanced Directives Records Found Additional Source Comments INFORMATION SOURCE (unrecogn ized section and content) DATE CREATED AUTHOR AUTHOR'S ARSLAN HURT 08/26/2019 [facility] ([place]) FOR RECORDS PERTAINING TO PATIENTS WHO ARE [...] BE BASED ON THE PRIMARY CLINICAL RECORDS. [facility] [employer] [facility]. provides no warranty or guarantee of the accuracy or completeness of information in this document.
[2023-05-27 09:59] LABS: ROM Internal Control Test YES-OK TO RESULT pt. (Internal QC)
[2023-05-27 10:00] LABS: ROM Patient Test POSITIVE (Negative)
--- NOTE | 2023-05-27 10:00 | HP.PCM.OB_ITS ---
HPI - General General Date of Admission: 05/27/23 Date of Service: 05/27/23 HPI Narrative HEIDY BISHOP, is a 32 F who presents at 40.3 with increasing contractions intensity and frequency. GBS positive in urine at NOB, negative on repeat culture at 36 weeks. Denies LOF although did feel like she peed herself yesterday no further leaking since. Maternal Data Information FLORINDA Calculator Estimated Delivery Date Method Current WG Current Estimate 05/24/23 LMP (Certain) 40w 3d PFSH PFSH Medical History 38 weeks gestation of Active labor care and examination Home Medications multivitamin no.47-iron fum 27 mg-folate no.1 1 mg-dha 300 mg capsule (PNV-DHA) cap PO Check with primary doctor 12/09/19 [History Last Taken 07/08/20] magnesium 200 mg tablet 200 mg PO DAILY 11/23/22 [History Last Taken Unknown] Lactobacillus reuteri-Lactobacillus rhamnosus 1 billion cell capsule (Fem Dophilus) cap PO 12/22/22 [History Last Taken Unknown] Allergy/AdvReac Type Severity Reaction Status Date / Time No Known Allergies Allergy Verified 05/22/23 10:33 Family History Father Colon cancer Diabetes Grandmother Heart disease Social History adopted: No household members: spouse and family number of children: 1 current occupational status: employed current occupation: [employer] current occupational exposures/hazards: No pets and animals: Yes pets and animals: dog(s) history of recent travel: Yes out of state: Yes sexually active: Yes Smoking Status: Former smoker second hand exposure: No alcohol intake: current details: not while -rare use substance use type: does not use caffeine: Yes Type: coffee seatbelt use: always do you feel safe at home: Yes 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 Date Name GA/Weeks Outcome Route Bth Weight Infant Gen Labor Lgth Anesthesia Del Locatn Provider FOB 07/09/20 [place] 39 live - full term 6lbs 10oz Female e pidural [facility] GP Delivery Date: 07/09/20 Last Updated by: Heidy Vega midline first-degree laceration Visit Details Expected Delivery Route/Plan Labor Preferences- CB/BF classes: Declines labor support person: Jensen labor intervention preferences: unmedicated but open to epidural pain management options preferred: desires tub cut cord/dad catch: [] : wants PP control planned: [] discussed possible routes of delivery and associated risks: [] 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 Plans Covid status: [] Flu vaccine: [] Tdap vaccine: declines Rhogam: NA LARC form signed: Done Problem list reviewed and updated with the most current plan of care details and appropriate orders placed. Relevant counseling for the gestational age provided. Continue routine care and follow up unless otherwise noted in visit notes/problem list details OB Flowsheet Initial Weight: 174 lb Date -?-?-?-?-?-?-?-?-?-?-?-?- EGA Weight BP Urine Prot -?-?-?-?-?-?-?-?-?-?-?-?- Glucose FHR FuHt Pres Dilation -?-?-?-?-?-?-?-?-?-?-?-?- Effaced St Visit Note 10/25/22 -?-?-?-?-?-?-?-?-?-?-?-?- 9w 6d 174 lb (+0 oz) 127/80 -?-?-?-?-?-?-?-?-?-?-?-?- -?-?-?-?-?-?-?-?-?-?-?-?- JV- will be anders ng her ultrasound at [facility] at 10 today. declines nipt. wants to do the fresh test for her early glucola. 11/23/22 -?-?-?-?-?-?-?-?-?-?-?-?- 14w 0d 174 lb 6 oz (+6 oz) 127/85 Negative -?-?-?-?-?-?-?-?-?-?-?-?- Negative 156 -?-?-?-?-?-?-?-?-?-?-?-?- LC- no vb/crampi ng. discussed and declines afp. passed 1 hour glucose. 12/22/22 -?-?-?-?-?-?-?-?-?-?-?-?- 18w 1d 178 lb 4 oz (+4 lb 4 oz) 122/79 -?-?-?-?-?-?-?-?-?-?-?-?- 160 -?-?-?-?-?-?-?-?-?-?-?-?- LC- no vb/crampi ng. anatomy ordered with [facility]. 01/19/23 -?-?-?-?-?-?-?-?-?-?-?-?- 22w 1d 182 lb 4 oz (+8 lb 4 oz) 107/73 Negative -?-?-?-?-?-?-?-?-?-?-?-?- Negative 145 22 -?-?-?-?-?-?-?-?-?-?-?-?- LC- no vb/ctx/lo f. good fm. no concerns. normal anatomy. will use fresh test for glucose. 02/20/23 -?-?-?-?-?-?-?-?-?-?-?-?- 26w 5d 187 lb (+13 lb) 112/77 Negative -?-?-?-?-?-?-?-?-?-?-?-?- Negative 150 26 -?-?-?-?-?-?-?-?-?-?-?-?- lc- no vb/ctx/lo f. good fm. passed 1 hour glucose. no concerns. 03/09/23 -?-?-?-?-?-?-?-?-?-?-?-?- 29w 1d 186 lb 2 oz (+12 lb 2 oz) 112/73 Trace -?-?-?-?-?-?-?-?-?-?-?-?- Negative 150 29 -?-?-?-?-?-?-?-?-?-?-?-?- LC- no vb/ctx/lo f. good fm. no concerns today. declines tdap/flu. 03/22/23 -?-?-?-?-?-?-?-?-?-?-?-?- 31w 0d 188 lb 2 oz (+14 lb 2 oz) 110/77 Negative -?-?-?-?-?-?-?-?-?-?-?-?- Negative 140 32 -?-?-?-?-?-?-?-?-?-?-?-?- KW-no vb/lof/ctx . good fm. no concerns today. 04/06/23 -?-?-?-?-?-?-?-?-?-?-?-?- 33w 1d 188 lb 4 oz (+14 lb 4 oz) 107/75 Negative -?-?-?-?-?-?-?-?-?-?-?-?- Negative 135 33 -?-?-?-?-?-?-?-?-?-?-?-?- LC- no vb/ctx/lo f. good fm. no concerns. reviewed options, desires low intervention 04/24/23 -?-?-?-?-?-?-?-?-?-?-?-?- 35w 5d 189 lb (+15 lb) 112/77 Negative -?-?-?-?-?-?-?-?-?-?-?-?- Negative 140 35 -?-?-?-?-?-?-?-?-?-?-?-?- KW- no vb/lof/ct x. good fm. no concerns today. discussed rescreening for GBS- Declines 05/01/23 -?-?-?-?-?-?-?-?-?-?-?-?- 36w 5d 187 lb (+13 lb) 108/77 Negative -?-?-?-?-?-?-?-?-?-?-?-?- Negative 145 37 Cephalic 3 -?-?-?-?-?-?-?-?-?-?-?-?- 60 -2 KW- no vb/ lof/regular ctx. good fm. Decided to recheck GBS this visit. Does understand that tx is still recommended. KW- no vb/lof/regular ctx. g ood fm. Decided to recheck GBS this visit. Does understand that tx is still recommended. Labor precautions today 05/08/23 -?-?-?-?-?-?-?-?-?-?-?-?- 37w 5d 188 lb (+14 lb) 105/71 Negative -?-?-?-?-?-?-?-?-?-?-?-?- Negative 145 38 Cephalic -?-?-?-?-?-?-?-?-?-?-?-?- KW- no vb/lof/re g ctx. good fm. KW- no vb/lof/reg ctx. good fm. no concerns today. 05/15/23 -?-?-?-?-?-?-?-?-?-?-?-?- 38w 5d 187 lb (+13 lb) 123/83 Negative -?-?-?-?-?-?-?-?-?-?-?-?- Negative 145 37 4 -?-?-?-?-?-?-?-?-?-?-?-?- 70 -2 kw- no vb/ lof/reg ctx. good fm. 05/22/23 -?-?-?-?-?-?-?-?-?-?-?-?- 39w 5d 188 lb 8 oz (+14 lb 8 oz) 103/74 Trace -?-?-?-?-?-?-?-?-?-?-?-?- Negative 135 38 Cephalic -?-?-?-?-?-?-?-?-?-?-?-?- KW- no vb/lof/re g ctx. good fm. NST FHR Rate Baby A Baseline: 150 Variability:: Moderate Accelerations:: 15 x 15 Decelerations:: None NST Reactive:: Yes FHR Category:: Category I Uterine Activity:: q2-3 minutes to palpation moderate/strong ROS Cardiovascular Cardiovascular: Denies abdominal pain, chest pain, diaphoresis or dyspnea Respiratory/Chest Respiratory/Chest: Denies change in mental status, chest congestion, chest tightness, cough, shortness of breath at rest, shortness of breath with exertion, breast mass, breast pain, breast skin changes, breast swelling, change in breast shape or nipple discharge Genitourinary Genitourinary: Reports change in urinary stream Musculoskeletal Musculoskeletal: Reports none Integumentary Integumentary: Reports none Neurologic Neurologic: Reports none Psychiatric Psychiatric: Reports none Endocrine Endocrinology: Reports none Hematologic/Lymphatic
--- NOTE | 2023-05-27 10:00 | PCM.HP.OB ---
HPI - General General Date of Admission: 05/27/23 Date of Service: 05/27/23 HPI Narrative HEIDY BISHOP, is a 32 F who presents at 40.3 with increasing contractions intensity and frequency. GBS positive in urine at NOB, negative on repeat culture at 36 weeks. Denies LOF although did feel like she peed herself yesterday no further leaking since. Maternal Data Information FLORINDA Calculator Estimated Delivery Date Method Current WG Current Estimate 05/24/23 LMP (Certain) 40w 3d PFSH PFSH Medical History 38 weeks gestation of Active labor care and examination Home Medications multivitamin no.47-iron fum 27 mg-folate no.1 1 mg-dha 300 mg capsule (PNV-DHA) cap PO Check with primary doctor 12/09/19 [History Last Taken 07/08/20] magnesium 200 mg tablet 200 mg PO DAILY 11/23/22 [History Last Taken Unknown] Lactobacillus reuteri-Lactobacillus rhamnosus 1 billion cell capsule (Fem Dophilus) cap PO 12/22/22 [History Last Taken Unknown] Allergy/AdvReac Type Severity Reaction Status Date / Time No Known Allergies Allergy Verified 05/22/23 10:33 Family History Father Colon cancer Diabetes Grandmother Heart disease Social History adopted: No household members: spouse and family number of children: 1 current occupational status: employed current occupation: [employer] current occupational exposures/hazards: No pets and animals: Yes pets and animals: dog(s) history of recent travel: Yes out of state: Yes sexually active: Yes Smoking Status: Former smoker second hand exposure: No alcohol intake: current details: not while -rare use substance use type: does not use caffeine: Yes Type: coffee seatbelt use: always do you feel safe at home: Yes 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 Date Name GA/Weeks Outcome Route Bth Weight Infant Gen Labor Lgth Anesthesia Del Locatn Provider FOB 07/09/20 [place] 39 live - full term 6lbs 10oz Female epidural [facility] GP Delivery Date: 07/09/20 Last Updated by: Heidy Vega midline first-degree laceration Visit Details Expected Delivery Route/Plan Labor Preferences- CB/BF classes: Declines labor support person: Jensen labor intervention preferences: unmedicated but open to epidural pain management options preferred: desires tub cut cord/dad catch: [] : wants PP control planned: [] discussed possible routes of delivery and associated risks: [] 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 Plans Covid status: [] Flu vaccine: [] Tdap vaccine: declines Rhogam: NA LARC form signed: Done Problem list reviewed and updated with the most current plan of care details and appropriate orders placed. Relevant counseling for the gestational age provided. Continue routine care and follow up unless otherwise noted in visit notes/problem list details OB Flowsheet Initial Weight: 174 lb Date <del>?</del> EGA Weight BP Urine Prot <del>?</del> Glucose FHR FuHt Pres Dilation <del>?</del> Effaced St Visit Note 10/25/22 <del>?</del> 9w 6d 174 lb (+0 oz) 127/80 <del>?</del> <del>?</del> JV- will be having her ultrasound at [facility] at 10 today. declines nipt. wants to do the fresh test for her early glucola. 11/23/22 <del>?</del> 14w 0d 174 lb 6 oz (+6 oz) 127/85 Negative <del>?</del> Negative 156 <del>?</del> LC- no vb/cramping. discussed and declines afp. passed 1 hour glucose. 12/22/22 <del>?</del> 18w 1d 178 lb 4 oz (+4 lb 4 oz) 122/79 <del>?</del> 160 <del>?</del> LC- no vb/cramping. anatomy ordered with [facility]. 01/19/23 <del>?</del> 22w 1d 182 lb 4 oz (+8 lb 4 oz) 107/73 Negative <del>?</del> Negative 145 22 <del>?</del> LC- no vb/ctx/lof. good fm. no concerns. normal anatomy. will use fresh test for glucose. 02/20/23 <del>?</del> 26w 5d 187 lb (+13 lb) 112/77 Negative <del>?</del> Negative 150 26 <del>?</del> lc- no vb/ctx/lof. good fm. passed 1 hour glucose. no concerns. 03/09/23 <del>?</del> 29w 1d 186 lb 2 oz (+12 lb 2 oz) 112/73 Trace <del>?</del> Negative 150 29 <del>?</del> LC- no vb/ctx/lof. good fm. no concerns today. declines tdap/flu. 03/22/23 <del>?</del> 31w 0d 188 lb 2 oz (+14 lb 2 oz) 110/77 Negative <del>?</del> Negative 140 32 <del>?</del> KW-no vb/lof/ctx. good fm. no concerns today. 04/06/23 <del>?</del> 33w 1d 188 lb 4 oz (+14 lb 4 oz) 107/75 Negative <del>?</del> Negative 135 33 <del>?</del> LC- no vb/ctx/lof. good fm. no concerns. reviewed options, desires low intervention 04/24/23 <del>?</del> 35w 5d 189 lb (+15 lb) 112/77 Negative <del>?</del> Negative 140 35 <del>?</del> KW- no vb/lof/ctx. good fm. no concerns today. discussed rescreening for GBS- Declines 05/01/23 <del>?</del> 36w 5d 187 lb (+13 lb) 108/77 Negative <del>?</del> Negative 145 37 Cephalic 3 <del>?</del> 60 -2 KW- no vb/lof/regular ctx. good fm. Decided to recheck GBS this visit. Does understand that tx is still recommended. KW- no vb/lof/regular ctx. good fm. Decided to recheck GBS this visit. Does understand that tx is still recommended. Labor precautions today 05/08/23 <del>?</del> 37w 5d 188 lb (+14 lb) 105/71 Negative <del>?</del> Negative 145 38 Cephalic <del>?</del> KW- no vb/lof/reg ctx. good fm. KW- no vb/lof/reg ctx. good fm. no concerns today. 05/15/23 <del>?</del> 38w 5d 187 lb (+13 lb) 123/83 Negative <del>?</del> Negative 145 37 4 <del>?</del> 70 -2 kw- no vb/lof/reg ctx. good fm. 05/22/23 <del>?</del> 39w 5d 188 lb 8 oz (+14 lb 8 oz) 103/74 Trace <del>?</del> Negative 135 38 Cephalic <del>?</del> KW- no vb/lof/reg ctx. good fm. NST FHR Rate Baby A Baseline: 150 Variability:: Moderate Accelerations:: 15 x 15 Decelerations:: None NST Reactive:: Yes FHR Category:: Category I Uterine Activity:: q2-3 minutes to palpation moderate/strong ROS Cardiovascular Cardiovascular: Denies abdominal pain, chest pain, diaphoresis or dyspnea Respiratory/Chest Respiratory/Chest: Denies change in mental status, chest congestion, chest tightness, cough, shortness of breath at rest, shortness of breath with exertion, breast mass, breast pain, breast skin changes, breast swelling, change in breast shape or nipple discharge Genitourinary Genitourinary: Reports change in urinary stream Musculoskeletal Musculoskeletal: Reports none Integumentary Integumentary: Reports none Neurologic Neurologic: Reports none Psychiatric Psychiatric: Reports none Endocrine Endocrinology: Reports none Hematologic/Lymphatic Hematologic/Lymphatic: Reports none Allergic/Immunologic Allergic/Immunologic: Reports none Vital Signs Vital Signs Vital Signs: 05/27/23 09:41 05/27/23 09:41 Pulse Rate 94 Blood Pressure 122/85 H BP Systolic 122 BP Diastolic 85 Physical Exam Const alert, oriented x3 and no apparent distress General Appearance: cooperative, comfortable and well kempt Orientation / Consciousness: awake and oriented to person Exam Limitations: no limitations HEENT normocephalic Neck full ROM Chest inspection of chest normal Resp normal respiratory effort, normal air movement and no retractions Effort and Inspection: able to speak in complete sentences and symmetric chest movement Cardio regular rate Peripheral Pulses: pulses 2+ throughout GI normal to inspection, nondistended, normoactive bowel sounds Inspection: gravid no CVA tenderness and appearance of the vagina normal External Female Exam: normal appearance of the urethra; Negative for external lesion OB / External & Speculum: external exam normal Manual OB Exam: estimated gestational size appropriate and presentation cephalic Uterus Palpation: Negative for uterus tender Extremity normal to inspection Skin no rashes or lesions noted Neuro deep tendon reflexes 2+ bilaterally and gait normal Motor Exam: strength 5/5 throughout and clonus absent Psych Activity / Motor Behavior: appropriate eye contact Speech: normal speech Labs Labs Labs: Blood Type A POSITIVE Antibody Screen NEGATIVE Hct 37.5 % (37-47) Hgb 12.3 g/dL (12.0-15.0) Obstetrics Ultrasound Syphilis Total Ab Non-reactive Rubella IgG Antibody Reactive (Nonreactive) Hep Bs Antigen Non-Reactive (Nonreactive) Hepatitis C Antibody Non-Reactive (Nonreactive) Chlamydia DNA (VALERIANO) Negative (Negative) N.gonorrhoeae DNA (VALERIANO) Negative (Negative) HIV 1&2 Antibody Non-Reactive (Nonreactive) Glucose 1 Hr 50 gm 97 mg/dL (70-140) Rhogam given: No Assessment & Plan (1) Supervision of high-risk : QUALIFIERS: Trimester: third trimester Qualified Code(s): O09.93 - Supervision of high risk , unspecified, third trimester COMMENT: PRR, FLORINDA 05/24/23 PC [place] Spouse: Jensen normal glucola (2) GBS bacteriuria: COMMENT: pcn in labor. desires retesting at 36 weeks. will be using probiotics/vitamin c. aware still requires treatment in labor. PLAN: discussed risk, benefits, alternative of GBS treatment. understands recommend treatment with hx of GBS positive in urine. if prolonged ROM, fever or increase in FHR pt will accept PCN. understands is not eligible for early discharge if not adequately treated. (3) Obesity affecting : QUALIFIERS: Trimester: third trimester Obesity type affecting : other obesity due to excess calories Qualified Code(s): O99.213 - Obesity complicating , third trimester; E66.09 - Other obesity due to excess calories COMMENT: early glucola ordered, passed. (4) Supervision of normal first , antepartum: COMMENT: FLORINDA 05/24/23 PC [place] Spouse: Jensen normal glucola (5) : QUALIFIERS: Weeks of gestation: 39 weeks Qualified Code(s): Z3A.39 - 39 weeks gestation of COMMENT: declined genetic, carrier. normal anatomy (6) Spontaneous onset of labor: COMMENT: /-1. admit to . PLAN: Plan Patient presents IAL, plan expectant management for , pitocin/AROM PRN if needed. Pain management: plans unmedicated. GBS positive. pt declines GBS treatment at this time. Management of any complications: obesity I have reviewed the [facility] and made any clinically relevant updates. Dr. Anne updated on admission, exam and POC. primary midwifery care, available as needed for consultations. discussed decline of GBS treatment. pedi aware.
[2023-05-27 10:21] LABS: Absolute Lymphocyte Count 1.71 X10^3/uL (0.83-4.51); Absolute Neutrophil Count 7.6 X10^3/uL (2.0-7.7); Basophil# 0.01 X10^3/uL; Basophil% 0.1 % (0-1); Eosinophil# 0.04 X10^3/uL; Eosinophils% 0.4 % (0-5); Lymphocyte # 1.71 X10^3/ul (0.83-4.51); Lymphocyte % 16.7 % (19-41); Mean Corp Hgb Conc 34.1 g/dL (32-36); Mean Corpuscular Hgb 32.9 pg (27.0-32.0); Mean Corpuscular Volume 96.2 fL (81-99); Mean Platelet Vol. 9.6 fl (6.2-12.0); Monocyte% 7.8 % (0-10); NRBC Flagged by Analyzer 0 % (0-5); Neutrophil # 7.62 X10^3/uL (2.7-7.7); Neutrophil % 74.5 % (47-70); Platelet Count 182 K/mm3 (150-450); RBC Distribution Width CV 13.4 % (11.6-14.6); RBC Distribution Width SD 47.4 fl (35.1-43.9); Red Blood Count 4.26 M/mm3 (4.2-5.4); White Blood Count 10.2 K/mm3 (4.4-11.0)
--- NOTE | 2023-05-27 10:23 | PCM.PN.OB ---
Subjective Subjective increasing discomfort with contractions, on birthing ball Objective Data Objective Data ROM plus positive. Vital Signs: Vital Signs Pulse BP 94 122/85 H 05/27/23 09:41 05/27/23 09:41 Weight: 190 lb Body Mass Index (BMI) 34.7 Lab / Micro Data 05/27/23 10:00 Labs: Laboratory Results - last 24 hr 05/27/23 09:30: Vag Amniotic Fld Detect POSITIVE H 05/27/23 10:00: WBC 10.2, RBC 4.26, Hgb 14.0, Hct 41.0, MCV 96.2, MCH 32.9 H, MCHC 34.1, RDW Std Deviation 47.4 H, RDW Coeff of Lani 13.4, Plt Count 182, MPV 9.6, Immature Gran % (Auto) 0.500, Neut % (Auto) 74.5 H, Lymph % (Auto) 16.7 L, [place] % (Auto) 7.8, Eos % (Auto) 0.4, Baso % (Auto) 0.1, Absolute Neuts (auto) 7.6, Absolute Lymphs (auto) 1.71, Nucleated RBC % 0 Assessment & Plan (1) SROM (spontaneous rupture of membranes): COMMENT: around 4pm 05/26/2023. consents to GBS treatment PLAN: recheck cervical exam around 2pm, if no change in exam plan to augment with pitocin. PLAN: Plan updated on ROM and plan to augment if needed with pitocin if no cervical change in 2-4 hours. pt accepts GBS treatment.
[2023-05-27] MEDS: Lactated Ringers 1,000 ML 50 ML IV (10:50)
[2023-05-27] MEDS: Penicillin G Pot 5,000,000 UNITS in 0.9% Normal Saline (100mL MB+) 100 ML 150 UNITS IV (10:54)
[2023-05-27 11:17] LABS: Syphilis Antibodies Non-reactive
--- NOTE | 2023-05-27 14:50 | PCM.PN.OB ---
Subjective Subjective breathing through contractions, more painful Objective Data Objective Data Vital Signs: Vital Signs Temp Pulse BP Pulse Ox 98.0 F 84 110/56 L 95 05/27/23 14:15 05/27/23 14:16 05/27/23 14:16 05/27/23 14:15 Weight: 190 lb Body Mass Index (BMI) 34.7 Intake & Output: Intake and Output for Last 24 Hours 05/25/23 05/26/23 05/27/23 23:59 23:59 23:59 Intake Total 202.5 / 202.5 Balance 202.5 / 202.5 Lab / Micro Data 05/27/23 10:00 Labs: Laboratory Results - last 24 hr 05/27/23 09:30: Vag Amniotic Fld Detect POSITIVE H 05/27/23 10:00: WBC 10.2, RBC 4.26, Hgb 14.0, Hct 41.0, MCV 96.2, MCH 32.9 H, MCHC 34.1, RDW Std Deviation 47.4 H, RDW Coeff of Lani 13.4, Plt Count 182, MPV 9.6, Immature Gran % (Auto) 0.500, Neut % (Auto) 74.5 H, Lymph % (Auto) 16.7 L, [place] % (Auto) 7.8, Eos % (Auto) 0.4, Baso % (Auto) 0.1, Absolute Neuts (auto) 7.6, Absolute Lymphs (auto) 1.71, Nucleated RBC % 0, Syphilis Total Ab Non-reactive, Blood Type A POSITIVE, Antibody Screen NEGATIVE Physical Exam Const alert and no apparent distress Lymph Lymphatic: no lymphadenopathy noted Manual OB Exam: presentation cephalic, dilated 8, effaced 100 and station 0 Assessment & Plan (1) SROM (spontaneous rupture of membranes): COMMENT: around 4pm 05/26/2023. consents to GBS treatment (2) Spontaneous onset of labor: COMMENT: /-1. admit to [facility]. PLAN: Plan at 40.3 active labor. current tracing: FHT: baseline 145, IA with accels [place]: [email or web address] strong Contractions reviewed tracing abnormalities since last note: none A/P: anticipate continue IA AROM after adequate PCN treatment
[2023-05-27] MEDS: Penicillin G 3,000,000 Units 50 ML 100 UNITS IV (15:05)
[2023-05-27] MEDS: Oxytocin 15 Units/NS 250ml 15 UNITS/250 ML IV.SOLN 83 UNITS IV (16:03)
[2023-05-27] MEDS: Oxytocin 10 UNITS/ML Vial IM (16:03)
[2023-05-27] MEDS: Lidocaine 1% (20 ml mdv) 20 ML Vial INFILT (16:10)
--- NOTE | 2023-05-27 16:27 | OP.PCM_ITS ---
Assessment & Plan (1) (spontaneous vaginal delivery): Maternal Data Information FLORINDA Calculator Estimated Delivery Date Method Current WG Current Estimate 05/24/23 LMP (Certain) 40w 3d
--- NOTE | 2023-05-27 16:27 | EX.PCM.OBRPT ---
Assessment & Plan (1) (spontaneous vaginal delivery): COMMENT: ARIANE IAL 40.3 boy: Vincenzo Maternal Data Information FLORINDA Calculator Estimated Delivery Date Method Current WG Current Estimate 05/24/23 LMP (Certain) 40w 3d Final FLORINDA Source: LMP Gestational age: 40.3 Vaginal Delivery Maternal Presentation Maternal Presentation: Active Labor Maternal Presentation: presenting in active labor at 40.3 ROM plus positive without evidence of ROM, likely high leak. PCN provided with adequate coverage for GBS positive status. progressed without intervention to 9cm, desired AROM for clear fluid and urge to push soon after. Operative Information Date of Procedure: 05/27/23 Pre-Operative Diagnosis: see problem list Post-Operative Diagnosis: Surgery / Procedure Performed: Spontaneous Vaginal Delivery Type of Anesthesia: Local with 1% Lidocaine Estimated Blood Loss: 250 Time of Delivery: 15:55 Findings Description of Procedure: Patient began pushing and delivered the head in the MAIK presentation. The head was delivered atraumatically. The anterior and posterior shoulders delivered without complication followed by the rest of the and the was placed on the maternal abdomen. Delayed cord clamping was employed for approximately 60 seconds. Cord was clamped and cut and gentle traction was applied to the cord and the placenta delivered spontaneously immediately following it was noted to be intact with three-vessel cord. The perineum and vagina were inspected and noted to have 1st degree laceration, repaired with 3-0 vicyrl. EBL was 250cc. Patient and infant tolerated delivery well, entered recovery bonding skin to skin. Dr. Anne updated in uncomplicated delivery. Presentation: Vertex Amniotic Membrane Rupture Type: Spontaneous Time of Membrane Rupture: 1600 with forebag rupture Amniotic Fluid Description: Clear Placental Delivery Description: Spontaneous Placenta Disposition: [facility] Cord Vessel Description: 3 Vessels Cord Entanglement: None Infant A Gender: Male (1 minute): 8 (5 minute): 9 Delayed Cord Clamping: Yes Post Vaginal Delivery Medications Given After Delivery: IV Pitocin and IM Pitocin Procedures Urinary/Genital [id number]: [id number] Vaginal Delivery [facility]
--- NOTE | 2023-05-27 16:38 | DCINST_ITS ---
Discharge Instructions Diet Discharge Diet: No restrictions Activity Discharge Activity: May Not Drive and May Shower May resume sexual activity in: 6 weeks Weight Bearing Status: Full weight bearing Dressing / Incision Call your doctor if your incision/area has: Sudden Increased Bleeding, Increased Pain/ Swelling and Foul Smelling Discharge Call your doctor if you observe: Fever of 101 or Higher, Numbness or Tingling, Change in Color, Inability to urinate, Inability to have a bowel movement, Using more than 1 pad per hour, Shortness of breath, Dizziness, Fainting spells, Chest pain, Calf discomfort and Uncontrolled pain Follow Up Care Please Follow Up With: Izabella Kirby CNM When: 6 weeks , please call office to make an appointment. Congratulations on the of your baby! Test Results: Test results from this visit will be discussed in further detail at your follow- up appointment, if applicable. Discharge Plan Admission Admit Date/Time: 05/27/23 09:38 Attending Provider: Izabella Kirby Primary Care Provider: Manjinder Cuellar Discharge Orders/Prescriptions Prescriptions: No Action PNV-DHA 27 mg iron-1 mg -300 mg capsule PO DAILY magnesium 200 mg tablet 200 mg PO DAILY Fem Dophilus 1 billion cell capsule 1 cap PO DAILY Referrals / Follow Up: Manjinder Cuellar MD [Primary Care Provider] - Disposition Disposition (needs filled in before D/C Order can be placed): Home, Self Care
[2023-05-27] MEDS: Acetaminophen 500 MG Tablet 1000 MG PO (18:13)
[2023-05-28] VITALS (7 sets, daily range): BP systolic 109–125; BP diastolic 68–75; PULSE 83–103; RESP 16–18; TEMP 36.7–36.9; O2SAT 98–99
[2023-05-28] MEDS: Acetaminophen 500 MG Tablet 1000 MG PO (00:31)
[2023-05-28] MEDS: Naproxen 500 MG Tablet PO (08:55)
[2023-05-28] MEDS: Senna/Docusate Sodium 1 Tablet PO (08:56)
--- NOTE | 2023-05-28 09:58 | PN.OBGYN_ITS ---
Subjective Subjective Patient doing well without complaints. Tolerating PO. Ambulating and voiding without difficulty. Feeding well. Denies chest pain, shortness of breath, calf pain/swelling, fevers, chills, lightheadedness. Objective Data Objective Data Vital Signs: Vital Signs Temp Pulse Resp BP Pulse Ox O2 Del Method 98.0 F 103 H 18 109/68 98 Room Air 05/28/23 09:01 05/28/23 09:01 05/28/23 09:01 05/28/23 09:01 05/28/23 09:01 05/28/23 09:01 Oxygen Delivery Method Room Air Weight: 190 lb Body Mass Index (BMI) 34.7 Intake & Output: Intake and Output for Last 24 Hours 05/26/23 05/27/23 05/28/23 23:59 23:59 23:59 Intake Total 502.5 / 502.5 Output Total 950 / 950 Balance -447.5 / -447.5 Lab / Micro Data 05/27/23 10:00 Labs: Laboratory Results - last 24 hr 05/27/23 09:30: Vag Amniotic Fld Detect POSITIVE H 05/27/23 10:00: WBC 10.2, RBC 4.26, Hgb 14.0, Hct 41.0, MCV 96.2, MCH 32.9 H, MCHC 34.1, RDW Std Deviation 47.4 H, RDW Coeff of Lani 13.4, Plt Count 182, MPV 9.6, Immature Gran % (Auto) 0.500, Neut % (Auto) 74.5 H, Lymph % (Auto) 16.7 L, Gosper % (Auto) 7.8, Eos % (Auto) 0.4, Baso % (Auto) 0.1, Absolute Neuts (auto) 7.6, Absolute Lymphs (auto) 1.71, Nucleated RBC % 0, Syphilis Total Ab Non- reactive, Blood Type A POSITIVE, Antibody Screen NEGATIVE Physical Exam Const alert and no apparent distress Lymph Lymphatic: no lymphadenopathy noted Chest inspection of chest normal Resp normal respiratory effort and normal air movement Cardio regular rate and regular rhythm GI normal to inspection, nondistended, normoactive bowel sounds Uterus Palpation: uterus fundus firm Extremity normal to inspection, full ROM and normal capillary refill Skin no rashes or lesions noted Psych mental status grossly normal Assessment & Plan (1) (spontaneous vaginal delivery): COMMENT: ARIANE IAL 40.3 boy: Vincenzo PLAN: s/p PPD # 1 1. routine post delivery care 2. breast feeding- support given 3. rh positive 4. rubella immune 5. d/c home today
== END 2023-05-28 17:15 | disposition home or self-care (01) | DRG 807 ==
LOC: WPOUT 09:38 → WP 09:38
PROVIDERS: Admitting Provider Registered Nurse; PCP Family Medicine; Referring Provider Registered Nurse; Visit Provider Registered Nurse
DX: O42.02 Full-term premature rupture of membranes, onset of labor within 24 hours of rupture (principal); Z37.0 Single live birth; E66.09 Other obesity due to excess calories; O99.214 Obesity complicating childbirth; O70.0 First degree perineal laceration during delivery; O99.824 Streptococcus B carrier state complicating childbirth; Z3A.40 40 weeks gestation of pregnancy; Z87.59 Personal history of other complications of pregnancy, childbirth and the puerperium; Z87.891 Personal history of nicotine dependence
CPT/HCPCS: 59025; 59050; 84112; 85025; 86780; 86850; 86900; 86901; 99221; J7120; G0378